=== PATIENT | female | born 1970 ===

== ENCOUNTER 2018-06-17 06:45 | Day surgery (SDC) | payer SELFPAY ==
[2018-06-17] MEDS ORDERED: Lactated Ringer's 1,000 ML IV ONE (08:20)
[2018-06-17 08:38] LABS: BASO % 0.3 % (0.0-2.0); EOS # 0.1 K/uL (0.0-0.7); EOS % 1.8 % (0.0-4.0); HEMOGLOBIN 12.4 g/dL (12.0-16.0); LYMPH # 1.4 K/uL (1.0-4.3); LYMPH % 18.9 % (20.0-40.0); MEAN CELL VOLUME 88.2 fl (81.0-99.0); MEAN CORPUSCULAR HGB CONC 32.9 g/dL (33.0-37.0); MEAN PLATELET VOLUME 8.6 fl (7.2-11.7); MONO # 0.5 K/uL (0.0-0.8); MONO % 6.4 % (0.0-10.0); NEUT # 5.6 K/uL (1.8-7.0); NEUT % 72.6 % (50.0-75.0); RBC 4.25 Mil/uL (3.80-5.20); RED CELL DISTRIBUTION WIDTH 14.6 % (11.5-14.5); WHITE BLOOD COUNT 7.7 K/uL (4.8-10.8)
[2018-06-17] MEDS ORDERED: Propofol 10 mg/ml Inj (20 ML) ONE (09:26)
[2018-06-17] MEDS ORDERED: Midazolam 2 MG/2 ML VIAL ONE (09:27)
[2018-06-17] MEDS ORDERED: Lidocaine 4% (Laryng-O-Jet) Kit MM ONE (09:27)
[2018-06-17] MEDS ORDERED: Succinylcholine Chloride 20 mg/ml Syr (5 ml) IV ONE (09:27)
[2018-06-17] MEDS ORDERED: ePHEDrine 50 mg/ml Inj ONE (09:27)
[2018-06-17] MEDS ORDERED: Dexamethasone 4 mg/1 ml ONE (09:54)
[2018-06-17] MEDS ORDERED: HYDROmorphone 0.5 mg/0.5 ml ISec IVP PRN (10:34)
[2018-06-17] MEDS ORDERED: Lactated Ringer's 1,000 ML IV SCH (10:45)
[2018-06-17 12:29] VITALS: O2SAT 97
[2018-06-17 12:55] VITALS: BMI 31.6
[2018-06-17 13:08] VITALS: BP 121/72; PULSE 73; RESP 18; TEMP 98.5
--- NOTE | 2018-06-18 18:39 | OP ---
PROCEDURE DATE: 06/17/2018 PREOPERATIVE DIAGNOSES: Heavy menstrual bleeding and endometrial polyp. POSTOPERATIVE DIAGNOSES: Heavy menstrual bleeding and endometrial polyp. PROCEDURE: Hysteroscopy, D and C, polypectomy with MyoSure. SURGEON: Petr Huggins MD COMPLICATIONS: None. ESTIMATED BLOOD LOSS: 10 mL. IV FLUID: 300 mL lactated Ringer's. FLUID DEFICIT: 425 mL. Normal saline used. URINE OUTPUT: 50 mL of clear yellow urine drained by red rubber catheter. GROSS FINDINGS: Approximately 2.5 cm endometrial polyp seen filling entire endometrial cavity; otherwise secretory endometrium seen throughout. On bimanual exam, uterus was anteverted, normal size. The cervix had no gross lesions and the adnexal examination was negative for masses. DESCRIPTION OF PROCEDURE: The patient was taken to the operating room where she was properly prepped and draped in the sterile manner. After general anesthesia was given without difficulty, bimanual exam was performed and the findings were as above. A weighted speculum was then placed in the vagina and the anterior lip of the cervix was grasped with a single-toothed tenaculum. The uterus was sounded to 8 cm in depth and the endocervical canal was then progressively dilated with Panda and Hegar dilators to allow for the hysteroscope. The hysteroscope was then introduced into the uterine cavity using sterile saline as descending media with the attached camera. The endometrial cavity was then distended with the fluid and the cavity was visualized. Secretory endometrium was seen throughout and approximately 2.5 cm polyp was noted filling the endometrial cavity. The coronal areas were then visualized bilaterally with the corresponding tubal ostia. There were no other direct intraluminal lesion seen. The MyoSure device was then introduced and this was used to perform the polypectomy under direct visualization. The endometrial polyp was removed in its entirety and good hemostasis was noted. Several pictures were taken prior to the removal of the polyp and after of the entire endometrial cavity. The hysteroscope was then removed. A larger curette was then used to obtain a moderate amount of tissue, which was sent to pathology for analysis. The instrument was then removed from the vaginal vault. After removal of all instruments, good hemostasis was noted. The patient was repositioned, awakened from anesthesia, and transferred to the recovery room in stable condition. She was sent home with a prescription of Motrin for pain and informed to return to the office in two weeks for postoperative evaluation. Petr Huggins MD
== END 2018-06-17 14:30 | disposition home or self-care (01) ==
LOC: H.OPSURG 06:45
PROVIDERS: ATTEND Obstetrics & Gynecology
DX: N84.0 Polyp of corpus uteri (principal); N92.1 Excessive and frequent menstruation with irregular cycle; D25.0 Submucous leiomyoma of uterus; N92.0 Excessive and frequent menstruation with regular cycle
CPT/HCPCS: 36415; 58558; 85025; 88305; J1100; J1170; J1885; J2001; J2250; J2405; J2704; J3010; J7030; J7120